=== PATIENT | male | born 1955 | race Caucasian/White ===

== ENCOUNTER 2016-04-18 19:11 | Emergency (ER) | payer OTHER ==
[~2016-04-18] VITALS: Ht 172.7 cm; Wt 88.1 kg
[~2016-04-18 19:11] MED LIST: CENTRUM CARD1 TABLET PO; LEVAQUIN250 MG PO; PRILOSEC40 MG PO; TOPROL XL100 MG PO; ZESTORETIC,P1 TABLE1 PO; [UNRECOGNIZED DRUG - OTHER] PO
[2016-04-18] MEDS ORDERED: MOTRIN600 MG PO (22:34)
[2016-04-18] MEDS ORDERED: FLEXERIL5 MG PO (22:34)
[2016-04-18] MEDS ORDERED: NORCO 5/3251 TABLET PO (22:34)
[2016-04-18 22:50] VITALS: BP 108/64
== END 2016-04-18 22:51 | disposition home or self-care (01) ==
LOC: EME 19:11
DX: M54.5 Low back pain (principal); I10 Essential (primary) hypertension; W01.0XXA Fall on same level from slipping, tripping and stumbling without subsequent striking against object, initial encounter
CPT/HCPCS: 99281; 99284; J1170